=== PATIENT | male | born 1965 | race Caucasian/White ===

== ENCOUNTER → 2019-03-13 | Outpatient (CLI) | payer MEDICAID ==
--- NOTE | 2019-03-13 13:27 | CONS ---
CONSULTATION DATE OF SERVICE: 03/13/2019 This 53-year-old gentleman has been evaluated in the sleep center for possible obstructive sleep apnea-hypopnea syndrome. 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 and another week from 5 p.m. until around 8:30 a.m. Subsequently, his sleep schedule is different. 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 and sleeps until around 3 p.m. and on days when he works as a day shift, he sleeps from around 10:30 p.m. until around 4:30 a.m. Sometimes he has problems with falling asleep. Has TV set in bedroom. He snores loudly according to his , and has witnessed episodes of stopped breathing during sleep. Patient wakes up from sleep more than 5 times with several episodes of nocturia. Positive history of dreaming, but no history of hypnagogic hallucinations. No sleep paralysis or cataplexy. After sleep, patient wakes up tired, has difficulties to pay attention, worry about his sleep, has problems with the memory, concentration and irritability. [place] Sleepiness Scale is 5. PAST MEDICAL HISTORY: Positive for hypertension, hyperlipidemia, acid reflux. SURGICAL HISTORY: Surgery for abdominal hernia. MEDICATIONS: Amlodipine, atorvastatin, medication for acid reflux. SOCIAL HISTORY: Positive for smoking in the past. Patient smoked about half pack a day for 15 years. Quit 10 years ago. Alcohol consumption up to 6 beers 4 times a week. FAMILY HISTORY: Hypertension, angina, heart problems, hyperlipidemia, asthma, sinus problems, cancer, tuberculosis, emphysema, acid reflux, during the sleep. REVIEW OF SYSTEMS: Multiple awakenings from sleep, tiredness and sleepiness. PHYSICAL EXAMINATION: During physical exam, gentleman without distress. VITAL SIGNS: BP 117/82, HR 84, RR 16, height 5 feet 7-3/4 inches, weight 196 pounds, body mass index 29.9, temperature 98.3, oxygen saturation at room air 96%. HEENT: PERRLA, EOMI. Oropharynx extremely low position of soft palate. Mallampati 4. Slight restriction of nasal breathing. Wide neck 16 inches in circumference. NECK: Supple, no JVD. Thyroid is not palpable. LUNGS: Clear to percussion and to auscultation. Good air exchange. No wheezing or rhonchi. HEART: S1, S2 regular. No murmurs, gallops, or rubs. ABDOMEN: Slightly obese. EXTREMITIES: No clubbing or cyanosis. FACILITIES CUSTODIAN: Awake, alert, and oriented X3. Cranial nerves 2 to 7 intact. There is no fasciculation or atrophy. noted. No focal deficits observed. IMPRESSION: 1. Loud snoring, witnessed episodes of stopped breathing during the sleep, extremely low position of soft palate, Mallampati 4, wide neck, multiple awakenings from sleep with nocturia, obstructive sleep apnea-hypopnea syndrome. 2. 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 3. Overweight. Body mass index 29.9, borderline to obesity 29.9. 4. Hypertension. 5. Hyperlipidemia. 6. Acid reflux. 7. Status post surgery for abdominal hernia. 8. Alcohol consumption up to 4 times per week. PLAN: 1. Polysomnography for evaluation of patient's breathing during sleep. 2. CPAP/BiPAP titration if sleep study confirms obstructive sleep apnea-hypopnea syndrome. 3. Preferable position during sleep on the side. 4. No driving if patient feels any sleepiness. 5. I will see patient for follow up visit to explain results of testing and following plan. 6. Decrease amount of using alcohol. Alcohol may increase snoring and may increase risk for sleep apnea. Thank you very much for referring this patient for consultation. Sincerely, Cedric Comer MD, PhD, FAASM Diplomat of [employer] [facility] [place] MMODL / IJN: [id number] /
== END ==
LOC: SLEEP 10:52
PROVIDERS: ATTEND Internal Medicine
DX: G47.33 Obstructive sleep apnea (adult) (pediatric) (principal); E66.9 Obesity, unspecified; Z68.29 Body mass index [BMI] 29.0-29.9, adult; I10 Essential (primary) hypertension; E78.5 Hyperlipidemia, unspecified; K21.9 Gastro-esophageal reflux disease without esophagitis; Z98.890 Other specified postprocedural states; Z72.89 Other problems related to lifestyle; Z87.891 Personal history of nicotine dependence; Z79.899 Other long term (current) drug therapy
CPT/HCPCS: 99201

== ENCOUNTER → 2020-02-05 | Outpatient (CLI) | payer MEDICAID ==
--- NOTE | 2020-02-06 02:30 | SFUN ---
SLEEP CENTER FOLLOW UP NOTE DATE OF SERVICE: 02/05/2020 This 54-year-old gentleman has been followed in Sleep Center for treatment of obstructive sleep apnea-hypopnea syndrome. This is his first visit after he was started on treatment with BiPAP. The patient indicated that he started to use BiPAP equipment but lately was not able to use it because developed significant dryness in the mouth. According to him, he tried to adjust humidity with his family, but did not significantly change the situation. [place] Sleepiness Scale today is 1. I checked his BiPAP unit. Maximal inspiratory pressure 19, minimal expiratory pressure 4, pressure support 4, ramp is off, humidity at the level of 3. Usage 24 out of 180 nights and 12 out 180 nights more than 4 hours. Average pressure 15/11. Leak is zero. Apnea-hypopnea index 8.4. IMPRESSION: 1. Moderate obstructive sleep apnea-hypopnea syndrome close to severe, improved on treatment with BiPAP, but patient has difficulties to use BiPAP. 2. Hypertension. 3. Hyperlipidemia. 4. Mild obesity. 5. Acid reflux. 6. Status post surgical treatment for abdominal hernia. 7. Alcohol consumption up to 4 times per week. PLAN: 1. I again discussed with the patient the necessity to use BiPAP equipment every night. 2. I adjusted humidity up to the level of 5. I explained to patient that he could adjust it more if necessary. Maximal level is 8. 3. I changed ramp from 0 to 20 minutes. 4. Sleep hygiene with regular time in bed for at least 7-1/2 to 8 hours. 5. Precautions related to driving. No driving if feeling sleepiness. 6. I will maintain all necessary prescription for PAP supplies including mask, tube, filters. 7. Watching weight. 8. No driving if feeling sleepiness. 9. Follow-up visit in 3 months or earlier if patient has any problems. Thank you very much for allowing me to participate in management of your patient. Sincerely, Cedric Comer MD, PhD, FAASM Diplomat of [employer] [facility] [place] MMODL / FABRIZION: [id number] /
== END | disposition home or self-care (01) ==
LOC: SLEEP 13:51
PROVIDERS: ATTEND Internal Medicine
DX: G47.33 Obstructive sleep apnea (adult) (pediatric) (principal); I10 Essential (primary) hypertension; E78.5 Hyperlipidemia, unspecified; E66.9 Obesity, unspecified; K21.9 Gastro-esophageal reflux disease without esophagitis; Z99.89 Dependence on other enabling machines and devices; Z98.890 Other specified postprocedural states

== ENCOUNTER → 2020-05-04 | Outpatient (CLI) | payer MEDICAID ==
--- NOTE | 2020-05-04 14:18 | MR ---
EXAMINATION TYPE: MR iac wo/w con DATE OF EXAM: 05/04/2020 COMPARISON: None HISTORY: Disorder of acoustic nerve, tinnitus, left ear TECHNIQUE: Multiplanar, multisequence images of the brain and brainstem, small [id number] images, high-resolu tion images through the internal auditory canals is performed without and with IV contrast, utilizing 8.5 mL intravenous Gadavist . FINDINGS: Diffusion weighted images demonstrate no evidence of a recent infarct or other diffusion ab normality. There is no extra-axial fluid collection. Periventricular white matter shows some scatte red hyperintensities on inversion recovery T2-weighted sequences, approximately 3-5 lesions are prese nt, largest in the right frontal lobe measures 5 mm on axial image #19, there are normal vascular rory w voids The ventricular system and cisternal spaces are normal in size and appearance. The brain vol ume is age appropriate. Midline structures demonstrate normal morphology. The craniocervical junction appears within normal limits. Within the internal auditory canal on the left there is abnormal soft tissue which is isointense but shows homogenous enhancement on contrast administration and measures approximately 6 mm x 12 x 6mm in size. The visualized dural venous sinuses appear patent. The visualized sinuses are clear and the gl obes are intact. Mild inflammatory change suspected within the mastoid air cells. 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
== END | disposition home or self-care (01) ==
LOC: RADMRIMAIN 08:04
PROVIDERS: ATTEND Otolaryngology
DX: H93.19 Tinnitus, unspecified ear (principal); H93.3X9 Disorders of unspecified acoustic nerve
CPT/HCPCS: 70553; A9585

== ENCOUNTER → 2020-09-06 | Outpatient (CLI) | payer MEDICAID ==
[2020-09-06 12:11] LABS: INR 0.9 (<1.2); Partial Thromboplastin Time 25.2 sec (22.0-30.0)
[2020-09-06 19:24] LABS: HCT 46.4 % (39.6-50.0); HGB 14.9 g/dL (13.0-17.0); MCH 28.9 pg (27.0-32.0); MCHC 32.1 g/dL (32.0-37.0); MCV 90.1 fL (80.0-97.0); Mean Platelet Volume 10.6 fL (9.5-12.2); Platelet Count 378 X 10*3/uL (140-440); RBC 5.15 X 10*6/uL (4.40-5.60); RDW 12.7 % (11.5-14.5); WBC 7.27 X 10*3/uL (4.50-10.00)
[2020-09-06 21:23] LABS: African American GFR (CKD) 86.5 (60.0-200.0); Anion Gap 10.5 mmol/L (4.00-12.00); BUN/Creat Ratio 10.91 Ratio (12.00-20.00); Calcium 9.5 mg/dL (8.7-10.3); Carbon Dioxide 26.5 mmol/L (21.6-31.8); Non-African American GFR(CKD) 74.6 (60.0-200.0); Potassium 5.4 mmol/L (3.5-5.5)
== END | disposition home or self-care (01) ==
LOC: LABWHC1 10:16
PROVIDERS: ATTEND Radiology Radiation Oncology
DX: D33.3 Benign neoplasm of cranial nerves (principal)
CPT/HCPCS: 36415; 80048; 85027; 85610; 85730

== ENCOUNTER 2021-01-04 12:14 | Emergency (ER) | payer MEDICAID ==
[2021-01-04 13:04] VITALS: BP 149/86; RESP 20; TEMP 98.4
--- NOTE | 2021-01-04 13:34 | XR ---
EXAMINATION TYPE: XR chest 2V DATE OF EXAM: 01/04/2021 COMPARISON: None HISTORY: 55 year-old male shortness of breath TECHNIQUE: PA and lateral views FINDINGS: The cardiomediastinal silhouette, aorta, and pulmonary vasculature are within normal limits. Some mil d patchy density is present in the right infrahilar region. No other consolidation or pleural effusio n. IMPRESSION: Mild patchy atelectasis versus early infiltrate in the right infrahilar region.
[2021-01-04] MEDS ORDERED: IPRATROPIUM-ALBUTEROL 3 ML NEB INHALATION STA (13:57)
[2021-01-04] MEDS ORDERED: methylPREDNISolone SOD SUCCI 125 MG/2 ML VIAL IV STA (14:04)
[2021-01-04 14:34] LABS: Basophils % (A) 1 %; Eosinophils # (A) 0.3 k/uL (0-0.7); Eosinophils % (A) 5 %; HCT 45.3 % (39.0-53.0); HGB 15.4 gm/dL (13.0-17.5); Lymphocytes # (A) 1.1 k/uL (1.0-4.8); Lymphocytes % (A) 18 %; MCH 30.9 pg (25.0-35.0); MCV 90.7 fL (80.0-100.0); Mean Platelet Volume 8.3; Monocytes # (A) 0.4 k/uL (0-1.0); Monocytes % (A) 7 %; Neutrophils % (A) 67 %; Platelet Count 311 k/uL (150-450); RBC 4.99 m/uL (4.30-5.90); RDW 12.5 % (11.5-15.5)
[2021-01-04 14:44] LABS: African American GFR (CKD) >90 (>60 ml/min/1.73 sqM); Anion Gap 10 mmol/L; Blood Urea Nitrogen 8 mg/dL (9-20); Calcium 9.4 mg/dL (8.4-10.2); Carbon Dioxide 26 mmol/L (22-30); Chloride 100 mmol/L (98-107); Glucose 111 mg/dL (74-99); Non-African American GFR(CKD) >90 (>60 ml/min/1.73 sqM); Potassium 4.3 mmol/L (3.5-5.1); Sodium 136 mmol/L (137-145)
[2021-01-04] MEDS ORDERED: cefTRIAXone IN SWFI 1,000 MG/10 ML SYRINGE IVP STA (14:45)
--- NOTE | 2021-01-04 14:45 | ED ---
General Adult HPI - General Chief complaint: Upper Respiratory Infection Stated complaint: cough Time Seen by Provider: 01/04/21 13:25 Source: patient, RN notes reviewed Mode of arrival: ambulatory Limitations: no limitations - History of Present Illness Initial comments: 55-year-old male presents emergency Department chief complaint cough congestion. Patient states she's been sick last few days. Patient noticed some wheezing does have a history of asthma. No reported fever patient states he is most wear CPAP at nighttime for sleep apnea he states he recently started wearing this again. Patient denies any chest pain. Patient states they said no sick contacts. Patient denies abdominal discomfort. - Related Data Home Medications Medication Instructions Recorded Confirmed Acetaminophen Tab [Tylenol Tab] 500 mg PO Q6H PRN 01/04/21 01/04/21 Atorvastatin [Lipitor] 20 mg PO DAILY 01/04/21 01/04/21 Pantoprazole Sodium [Protonix] 40 mg PO DAILY 01/04/21 01/04/21 amLODIPine BESYLATE/BENAZEPRIL 1 cap PO DAILY 01/04/21 01/04/21 [Lotrel 5-10 MG] guaiFENesin [Mucinex] 600 mg PO BID PRN 01/04/21 01/04/21 Previous Rx's Medication Instructions Recorded Albuterol Sulfate [Proair Hfa] 1 - 2 puff INHALATION Q4HR PRN 01/04/21 #8.5 gm Azithromycin [Zithromax Z-pack (6 0 mg PO DIRECTED #1 packet 01/04/21 tabs)] predniSONE 50 mg PO DAILY #5 tab 01/04/21 Allergies Allergy/AdvReac Type Severity Reaction Status Date / Time No Known Allergies Allergy Verified 01/04/21 13:54 Review of Systems ROS Statement: Those systems with pertinent positive or pertinent negative responses have been documented in the HPI. ROS Other: All systems not noted in ROS Statement are negative. Past Medical History Past Medical History: Asthma, Hypertension Additional Past Medical History / Comment(s): brain tumor History of Any Multi-Drug Resistant Organisms: None Reported Past Surgical History: Hernia Repair Additional Past Surgical History / Comment(s): neck fatty tumor removed. blessing knife for tumor removal Past Psychological History: No Psychological Hx Reported Smoking Status: Never smoker Past Alcohol Use History: Occasional Past Drug Use History: None Reported General Exam Limitations: no limitations Course Vital Signs 01/04/21 12:58 Temperature 98.4 F Pulse Rate 95 Respiratory 20 Rate Blood Pressure 149/86 O2 Sat by Pulse 93 L Oximetry Medical Decision Making - Medical Decision Making X-ray shows evidence of perihilar pneumonia. Patient does have some moderate wheezing. Patient is COVID-19 negative. Patient was given Rocephin, az ithromycin we discharged with steroids in addition. - Lab Data Result diagrams: 01/04/21 14:16 Lab Results 01/04/21 01/04/21 Range/Units 13:03 14:16 WBC 6.0 (3.8-10.6) k/uL RBC 4.99 (4.30-5.90) m/uL Hgb 15.4 (13.0-17.5) gm/dL Hct 45.3 (39.0-53.0) % MCV 90.7 (80.0-100.0) fL MCH 30.9 (25.0-35.0) pg MCHC 34.0 (31.0-37.0) g/dL RDW 12.5 (11.5-15.5) % Plt Count 311 (150-450) k/uL MPV 8.3 Neutrophils % 67 % Lymphocytes % 18 % Monocytes % 7 % Eosinophils % 5 % Basophils % 1 % Neutrophils # 4.0 (1.3-7.7) k/uL Lymphocytes # 1.1 (1.0-4.8) k/uL Monocytes # 0.4 (0-1.0) k/uL Eosinophils # 0.3 (0-0.7) k/uL Basophils # 0.0 (0-0.2) k/uL Coronavirus (PCR) Not Detected (Not Detectd) Disposition Clinical Impression: Pneumonia, Asthma Disposition: HOME SELF-CARE Condition: Stable Instructions (If sedation given, give patient instructions): Pneumonia (ED) Additional Instructions: Please return to the Emergency Department if symptoms worsen or any other concer ns. Prescriptions: predniSONE 50 mg PO DAILY #5 tab Albuterol Sulfate [Proair Hfa] 1 - 2 puff INHALATION Q4HR PRN #8.5 gm PRN Reason: difficulty in breathing Azithromycin [Zithromax Z-pack (6 tabs)] 0 mg PO DIRECTED #1 packet Is patient prescribed a controlled substance at d/c from ED?: No Referrals: None,Stated [Primary Care Provider] - 1-2 days Time of Disposition: 14:45
[2021-01-04 15:11] VITALS: PULSE 96
== END 2021-01-04 16:22 | disposition home or self-care (01) ==
LOC: EC 12:14
DX: J18.9 Pneumonia, unspecified organism (principal); J45.909 Unspecified asthma, uncomplicated; I10 Essential (primary) hypertension; Z79.51 Long term (current) use of inhaled steroids; Z20.822 Contact with and (suspected) exposure to COVID-19
CPT/HCPCS: 36415; 94640; 80048; 85025; 87635; 71046; 99285; 96374; J2930